=== PATIENT | male | born 1995 | race Caucasian/White ===

== ENCOUNTER 2017-12-04 04:28 | Emergency (ER) | payer OTHER ==
[~2017-12-04] VITALS: Ht 175.3 cm; Wt 99.8 kg
[2017-12-04 04:28] VITALS: BP_SYST 142
[2017-12-04 04:45] VITALS: BP_SYST 142
== END 2017-12-04 04:45 ==
LOC: SED 04:28
DX: Z02.83 Encounter for blood-alcohol and blood-drug test (principal)